=== PATIENT | female | born 1960 | race African-American/Black ===

== ENCOUNTER 2018-08-20 14:33 | Inpatient (IN) | payer OTHER, MEDICAID ==
[~2018-08-20] VITALS: Ht 157.5 cm; Wt 61.2 kg
[2018-08-20] MEDS ORDERED: LORAZEPAM 1MG TABLET PO ONE (20:45)
[2018-08-20] MEDS ORDERED: KETOROLAC 60MG/2ML VIAL IM ONE (20:45)
[2018-08-20] MEDS ORDERED: HYDROCODONE/ACETAMINOPHEN 5/325MG TABLET PO ONE (22:00)
[2018-08-21] MEDS ORDERED: ONDANSETRON 4MG ODT PO ONE
[2018-08-21] MEDS ORDERED: MORPHINE SULFATE 10 MG/ML CPJ IM ONE
[2018-08-21] MEDS ORDERED: IBUPROFEN 600MG TABLET PO PRN (02:45)
[2018-08-21 03:35] LABS: BASOPHILS % 0.7 % (0.0-2.0); EOSINOPHILS % 1.9 % (0.0-5.0); HEMATOCRIT. 40.9 % (36.0-48.0); HEMOGLOBIN. 12.9 g/dL (12.0-16.0); MEAN CORPUSCULAR HEMOGLOBIN 28.3 pg (28.0-32.0); MEAN CORPUSCULAR VOLUME 89.6 fL (81.0-99.0); MEAN PLATELET VOLUME 7.5 fl (7.4-10.4); MONOCYTES % 6.1 % (2.0-8.0); NEUTROPHILS % 67.3 % (40.0-76.0); PLATELET 277 x1000/uL (130-400); RED BLOOD CELL COUNT 4.56 mill/uL (4.2-5.4); RED CELL DISTRIBUTION WIDTH 14.5 % (11.6-14.6)
[2018-08-21 03:39] LABS: CHLORIDE 108 mEq/L (98-107)
[2018-08-21 09:00] VITALS: BP 125/78
[2018-08-21 10:00] VITALS: BP 128/70
[2018-08-21 12:00] VITALS: BP 131/66
[2018-08-21] MEDS ORDERED: ALBUL MT (12:03)
[2018-08-21] MEDS ORDERED: CLONIDINE 0.1MG TABLET PO PRN (12:15)
[2018-08-21] MEDS ORDERED: ONDANSETRON HCL 4MG/2ML INJ IV PRN (12:15)
[2018-08-21] MEDS ORDERED: ACETAMINOPHEN 325MG TABLET PO PRN (12:15)
[2018-08-21] MEDS ORDERED: IPRATROPIUM/ALBUTEROL 0.5-3(2.5)MG/3ML NEB INH PRN (12:15)
[2018-08-21] MEDS: ENOXAPARIN 40MG/0.4ML SYR SUBCUT SCH (14:34)
[2018-08-21] MEDS: HYDROCODONE/ACETAMINOPHEN 5/325MG TABLET PO PRN (14:35)
[2018-08-21 16:00] VITALS: BP 119/63
[2018-08-21 20:00] VITALS: BP 148/71
[2018-08-22] VITALS: BP 144/71
[2018-08-22 04:00] VITALS: BP 131/67
[2018-08-22 08:00] VITALS: BP 133/63
[2018-08-22 08:06] LABS: CHLORIDE 107 mEq/L (98-107)
[2018-08-22 08:10] LABS: BASOPHILS % 0.5 % (0.0-2.0); EOSINOPHILS % 1.7 % (0.0-5.0); HEMATOCRIT. 38.9 % (36.0-48.0); HEMOGLOBIN. 12.6 g/dL (12.0-16.0); LYMPHOCYTES % 28.3 % (20.0-50.0); MEAN CORPUSCULAR HEMOGLOBIN 28.5 pg (28.0-32.0); MEAN CORPUSCULAR VOLUME 88.1 fL (81.0-99.0); MEAN PLATELET VOLUME 7.8 fl (7.4-10.4); MONOCYTES % 7.2 % (2.0-8.0); NEUTROPHILS % 62.3 % (40.0-76.0); PLATELET 284 x1000/uL (130-400); RED BLOOD CELL COUNT 4.42 mill/uL (4.2-5.4); RED CELL DISTRIBUTION WIDTH 14.1 % (11.6-14.6)
[2018-08-22 08:28] LABS: HDL CHOLESTEROL 38 mg/dL (40-59); LDL CHOLESTEROL 95 mg/dL (5-100)
[2018-08-22] MEDS: ENOXAPARIN 40MG/0.4ML SYR SUBCUT SCH (09:22)
[2018-08-22 12:00] VITALS: BP 150/72
[2018-08-22 12:30] LABS: CLARITY URINE CLEAR (CLEAR); COLOR URINE YELLOW (YELLOW); KETONES URINE NEGATIVE (NEGATIVE); LEUKOCYTE ESTERASE URINE 3+ (NEGATIVE); NITRITE URINE NEGATIVE (NEGATIVE); OCCULT BLOOD URINE TRACE (NEGATIVE); PROTEIN URINE NEGATIVE (NEGATIVE); SPECIFIC GRAVITY URINE 1.015 (1.005-1.030)
[2018-08-22 12:53] LABS: *AMPHETAMINES SCREEN URINE NEGATIVE (NEGATIVE); *BARBITURATES SCREEN URINE NEGATIVE (NEGATIVE); *BENZODIAZEPINES SCREEN URINE NEGATIVE (NEGATIVE); *COCAINE SCREEN URINE PRESUMTIVE POSITIVE (NEGATIVE); METHADONE URINE SCREEN NEGATIVE (NEGATIVE); OPIATES URINE SCREEN PRESUMTIVE POSITIVE (NEGATIVE)
[2018-08-22 12:54] LABS: CANNABINOID URINE SCREEN NEGATIVE (NEGATIVE); PHENCYCLIDINE URINE SCREEN NEGATIVE (NEGATIVE)
[2018-08-22] MEDS: IPRATROPIUM/ALBUTEROL 0.5-3(2.5)MG/3ML NEB INH SCH ×3 (13:04→21:50)
[2018-08-22 16:00] VITALS: BP 131/56
[2018-08-22] MEDS ORDERED: DIPHENHYDRAMINE 50MG/ML VIAL IV PRN (16:00)
[2018-08-22] MEDS ORDERED: TEMAZEPAM 15MG CAPSULE PO PRN (16:00)
[2018-08-22] MEDS ORDERED: GUAIFENESIN 200MG/10ML SUGAR FREE UDC PO PRN (16:00)
[2018-08-22] MEDS ORDERED: DOCUSATE SODIUM 100MG CAPSULE PO PRN (16:00)
[2018-08-22] MEDS: LEVOFLOXACIN 500MG PREMIX 100 ML IV SCH (17:44)
[2018-08-22 20:00] VITALS: BP 144/61
[2018-08-23] VITALS: BP 148/74
[2018-08-23 04:00] VITALS: BP 139/61
[2018-08-23] MEDS: IPRATROPIUM/ALBUTEROL 0.5-3(2.5)MG/3ML NEB INH SCH ×5 (06:56→21:48)
[2018-08-23 07:41] LABS: CHLORIDE 106 mEq/L (98-107)
[2018-08-23 08:00] VITALS: BP 117/58
[2018-08-23 08:14] LABS: HEMATOCRIT 38.8 % (36.0-48.0); HEMOGLOBIN 12.3 g/dL (12.0-16.0); MEAN CORPUSCULAR HEMOGLOBIN 28.1 pg (28.0-32.0); MEAN CORPUSCULAR VOLUME 88.6 fL (81.0-99.0); PLATELET 285 x1000/uL (130-400); RED BLOOD CELL COUNT 4.38 mill/uL (4.2-5.4); RED CELL DISTRIBUTION WIDTH 13.7 % (11.6-14.6)
[2018-08-23] MEDS: ENOXAPARIN 40MG/0.4ML SYR SUBCUT SCH (09:00)
[2018-08-23] MEDS ORDERED: PNEUMOCOCCAL 23-VAL P-SAC VAC 0.5 ML IM ONE (09:15)
[2018-08-23] MEDS ORDERED: INFLUENZA VIRUS VACCINE(AFLURIA) 0.5ML SYR IM ONE (09:15)
[2018-08-23] MEDS: HYDROCODONE/ACETAMINOPHEN 5/325MG TABLET PO PRN ×2 (14:47→22:46)
[2018-08-23 16:00] VITALS: BP 127/67
[2018-08-23] MEDS: LEVOFLOXACIN 500MG PREMIX 100 ML IV SCH (17:45)
[2018-08-23 20:00] VITALS: BP 115/51
[2018-08-24] VITALS: BP 114/54
[2018-08-24 04:00] VITALS: BP 109/40
[2018-08-24 08:06] VITALS: BP 114/59
[2018-08-24] MEDS: ENOXAPARIN 40MG/0.4ML SYR SUBCUT SCH (10:00)
[2018-08-24] MEDS: IPRATROPIUM/ALBUTEROL 0.5-3(2.5)MG/3ML NEB INH SCH ×3 (10:28→17:30)
[2018-08-24 12:00] VITALS: BP 127/66
[2018-08-24 16:00] VITALS: BP 121/44
[2018-08-24 17:11] VITALS: BP 121/44
[2018-08-25] MEDS ORDERED: LEVOFLOXACIN 500MG TABLET PO SCH (11:00)
== END 2018-08-24 17:45 | disposition home or self-care (01) | DRG 552 ==
LOC: ER 14:43 → 6EST 08-21 02:33 → ENRESERV 08-21 06:57
PROVIDERS: ADMIT Internal Medicine; ATTEND Internal Medicine
DX: M48.061 Spinal stenosis, lumbar region without neurogenic claudication (principal); N39.0 Urinary tract infection, site not specified; E86.0 Dehydration; I10 Essential (primary) hypertension; E66.9 Obesity, unspecified; M54.16 Radiculopathy, lumbar region; R26.9 Unspecified abnormalities of gait and mobility; F19.10 Other psychoactive substance abuse, uncomplicated; J44.9 Chronic obstructive pulmonary disease, unspecified; Z68.24 Body mass index [BMI] 24.0-24.9, adult; Z87.891 Personal history of nicotine dependence
CPT/HCPCS: 36415; 71045; 72100; 72148; 73522; 80048; 80061; 80305; 84439; 84443; 84484; 85027; 93005; 93306; 93970; 94640; 96372; 97162; 97530; 99285; C1893; J1650; J1885; J1956; J2270; J7620; Q0162

== ENCOUNTER 2019-03-10 15:17 | Emergency (ER) | payer OTHER, MEDICAID ==
[~2019-03-10] VITALS: Ht 157.5 cm; Wt 62.0 kg
[~2019-03-10 15:17] MED LIST: ALBUL MT
[2019-03-10] MEDS ORDERED: IPRATROPIUM BROMIDE (0.02%) 0.5MG/2.5ML NEB HHN STA (18:30)
[2019-03-10] MEDS ORDERED: PREDNISONE 20MG TABLET PO STA (18:30)
[2019-03-10] MEDS ORDERED: KETOROLAC 60MG/2ML VIAL IM ONE (18:30)
[2019-03-10] MEDS ORDERED: ALBUTEROL (0.083%) 2.5MG/3ML NEB HHN STA (18:30)
[2019-03-10 19:58] VITALS: BP 142/65
== END 2019-03-10 19:59 | disposition home or self-care (01) ==
LOC: ER 15:17
DX: J45.909 Unspecified asthma, uncomplicated (principal); S46.912A Strain of unspecified muscle, fascia and tendon at shoulder and upper arm level, left arm, initial encounter; I10 Essential (primary) hypertension; F17.200 Nicotine dependence, unspecified, uncomplicated; Y08.89XA Assault by other specified means, initial encounter; Y93.9 Activity, unspecified; Y92.9 Unspecified place or not applicable
CPT/HCPCS: 94640; 96372; 99283; J1885; J7512; J7611